=== PATIENT | female | born 1985 | race Caucasian/White ===

== ENCOUNTER 2018-02-10 10:18 | Inpatient (IN) | payer BC, SELFPAY ==
[2018-02-09 17:17] VITALS: BMI 26.9
[2018-02-09 18:20] LABS: Absolute Lymphocyte Count 1.66 X10^3/ul (0.83-4.51); Absolute Neutrophil Count 4.9 X10^3/uL (2.0-7.7); Basophil# 0.02 X10^3/uL; Basophil% 0.3 % (0-1); Eosinophil# 0.04 X10^3/uL; Eosinophils% 0.6 % (0-5); Hematocrit 38.7 % (37-47); Hemoglobin 13.1 g/dl (12.0-15.0); Lymphocyte # 1.66 X10^3/ul (4.0); Lymphocyte % 22.9 % (19-41); Mean Corp Hgb Conc 33.9 g/gl (32-36); Mean Corpuscular Hgb 30.1 pg (27.0-32.0); Mean Platelet Vol. 10.4 fl (6.2-12.0); Monocyte# 0.56 X10^3/uL; Monocyte% 7.7 % (0-10); Neutrophil # 4.94 X10^3/uL (2.7-7.7); Neutrophil % 68.2 % (47-70); Platelet Count 97 K/mm3 (150-450); RBC Distribution Width CV 14.2 % (11.6-14.6); RBC Distribution Width SD 46.1 fl (35.1-43.9); Red Blood Count 4.35 M/mm3 (4.2-5.4); White Blood Count 7.2 K/mm3 (4.4-11.0)
[2018-02-09 18:25] LABS: POSITIVE COUNT NO; POSITIVE DIFFERENTIAL NO; POSITIVE MORPHOLOGY NO
[2018-02-10] VITALS (18 sets, daily range): BP systolic 89–116; BP diastolic 57–88; PULSE 74–92; RESP 16–20; TEMP 35.8–37.2; O2SAT 96–100; BMI 26.9
[2018-02-10] MEDS: Lactated Ringers 1,000 ML 999 ML IV (10:40)
[2018-02-10 11:25] LABS: Hematocrit 35.2 % (37-47); Hemoglobin 12.3 g/dl (12.0-15.0); Mean Corp Hgb Conc 34.9 g/gl (32-36); Mean Corpuscular Hgb 31.3 pg (27.0-32.0); Mean Corpuscular Volume 89.6 fL (81-99); Mean Platelet Vol. 9.9 fl (6.2-12.0); Platelet Count 92 K/mm3 (150-450); RBC Distribution Width CV 14.2 % (11.6-14.6); RBC Distribution Width SD 45.1 fl (35.1-43.9); Red Blood Count 3.93 M/mm3 (4.2-5.4); White Blood Count 6.4 K/mm3 (4.4-11.0)
[2018-02-10 11:27] LABS: Scan Indicated on CBC? Y/N NO
[2018-02-10] MEDS: Sodium Citrate/Citric Acid 30 ML UDC PO (11:56)
[2018-02-10] MEDS: Lactated Ringers 1,000 ML 150 ML IV (11:56)
[2018-02-10] MEDS: Cefazolin 2 GM in 0.9% Normal Saline 100 ML IV (11:56)
[2018-02-10] MEDS: Oxytocin 30 units/NS 500 ml 30 UNITS/500 ML IV.SOLN 167 UNITS IV (12:50)
--- NOTE | 2018-02-10 14:00 | PCM.HP.OB ---
- Problem List (1) Previous delivery affecting , antepartum Status: Acute History Date of Admission: 02/10/18 Final ILIANA: 02/17/18 Final ILIANA Source: LMP Gestational age: 39 Weeks and 0 Days History of this : This is a 32 year-old, G [3], P [2], at 39 weeks gestational age. Here for RLTCS declines tubal ligation, GBS Pos, Gestational thrombocytopenia Medical History: Medical History (Last Updated 02/10/18 @ 14:08 by Deena Griffith DO) Healthy female Previous section complicating O34.219 Allergies No Known Allergies Allergy (Verified 02/09/18 17:18) Home Medications: Home Medications Vits [Prenatabs FA] 1 tablet PO DAILY 02/09/18 Smoking Status: Never smoker Alcohol: None Number of Fetus(es): 1 Heart Tracing: cat 1 History Past Pregnancies: Past Pregnancies Delivery Date Name GA/Weeks Outcome Route Weight Infant Gender Labor Length Anesthesia Delivery Location Provider FO 01/2014 41 C/S 8#4 male epidural [facility] 2015 40 C/S 8#6 female spinal [facility] Labs: Rubella immune, RPR neg, GBS pos, O pos, hep C and Hep B neg Expected Delivery Method: Repeat Section Number of Visits: 11 Review of Systems Constitutional: Denies: Anorexia, Weakness Eyes: Denies: Blurred vision, Double vision, Pain HEENT: Denies: Difficulty Hearing, Head Aches Cardiovascular: Denies: Chest Pain, Palpitations Respiratory: Denies: Cough, Shortness of Breath Gastrointestinal: Denies: Abdominal Pain, Diarrhea, Nausea Genitourinary: Denies: Dysuria, Hematuria Gynecological: Denies: Vaginal discharge Musculoskeletal: Denies: Joint stiffness, Muscle pain Skin: Denies: Jaundice Neurological: Denies: Balance problems Psychiatric: Denies: Depression Hematologic/ Lymphatic: Denies: Adenopathy Physical Exam Vitals: Vital Signs Temp Pulse Resp BP Pulse Ox 96.9 F L 92 16 112/88 H 99 02/10/18 13:45 02/10/18 13:45 02/10/18 13:45 02/10/18 13:45 02/10/18 13:45 General: Alert, Oriented x3 HEENT: Atraumatic, PERRLA Cardiovascular: Regular rate Lungs: Clear to auscultation Abdomen: Bowel Sounds Present, Soft, Non Tender, Gravid Extremities:: No clubbing, No cyanosis, No edema Neurological: Deep Tendon Reflexes 2+/4 and Symmetrical Estimated gestational size: Appropriate for gestational size Presentation: Cephalic Assessment/Plan All Active Problems (Last Updated 02/10/18 @ 14:08 by Deena Griffith DO) Previous delivery affecting , antepartum (Acute) This is a 32 year-old, G [], P [], at 39 weeks gestational age. consented for Repeat section Ancef for preop and GBS
--- NOTE | 2018-02-10 14:23 | SUR.OPER ---
Pre OP- Previous section Post op- Same Procedure: Repeat Low Transverse section Surgeon: Nacho Assist: Fish Fryer Anesthesia: Spinal EBL: 800 Fluids: 1000LR UOP: 400 clear at end of procedure special meds: Ancef, toradol and Agustín Findings: Male 8#13 11/08 Indications: 32 yo for repeat Low transverse section. Scheduled delivery. R/b/a reviewed patient was agreeable and consented appropriately. Procedure: Patient was taken to the operating room where she was prepped and draped in the normal sterile fashion. Adequate anesthesia was obtained, Chau to straight drain and SCD's in place and functioning. A pfannenstiel skin incision was made with the scalpel through the previous scar and carried down through the underlying layers of tissue to the fascia. Fascia was nicked in the midline and stephen scissors used to dissect out laterally. The superior portion of the fascia was tented up with Johnny clamps and the rectus muscles were dissected off with sharp dissection. The inferior portion of the fascia was tented up with Johnny clamps and the rectus muscles dissected off with sharp dissection. The rectus muscle were in the midline with sharp dissection the peritoneum entered sharply after tenting up with Kavita clamps. The peritoneal incision was extended superior and inferiorly with good visualization of the bladder. The bladder blade was inserted and the lower uterine incision was incised with the scalpel. The placenta was encounterd and the head grasp throught the placenta dissengaged the head from the pelvis easily. The Head and body were delivered with the assistance of fundal pressure. Baby was vigorous upon delivery and delayed cord clamping performed on the field with baby blanket for warmth. The cord was clamped and cut and 3 vessel cord confirmed. The cord was wrapped around the body and there was a true knot. The Baby Boy was handed off to the baby nurse. The placenta delivered spontaneously and the uterus cleared of all clot and debris. The uterine incision was closed with an 0 vicryl suture running lock obtaining hemostasis. A second suture was used to imbricate the incision and confirm hemostasis. The uterus was firm and returned to the abdomen. Abdomen was irrigated cleared of all clot and debris. The peritoneum was identified and closed with an 2-0 monocryl in a running fashion. The muscles reapproximated with an 0 vicryl u stitch. The fascia was closed with an 0 vicryl. The subcutaneous tissue reapproximated with a 3-0 vicryl and the skin closed with 4-0 monocryl dressed with Dermabond. Patient tolerated the procedure well. Sponge, Lap and needle count was correct x 2. Patient and infant taken to the recovery room and were stable at the time of dictation. Deena Griffith DO FACOG 02/10/2018
--- NOTE | 2018-02-10 14:41 | PCM.OB.CSR ---
- Problem List (1) Previous delivery affecting , antepartum Status: Acute Delivery Final ILIANA: 02/17/18 Gestational age: 39 Weeks and 0 Days Indications for : Repeat Elective Amniotic Membrane Rupture Type: Artificial Amniotic Fluid Description: Clear Placenta Disposition: [facility] Drain: Chau to straight drain Cord Entanglement: Around neck x 1, loose, True Knot(s) Cord Vessel Description: 3 Vessels Esitmated Blood Loss (ml): 800 Infant Gender: Male (1 minute): 9 (5 minute): 9 Delayed cord clamping: Yes Pre-op Antibiotic Given: Ancef 2 grams IV x1 Pt instructed on risks of surgery: Bleeding, Anesthesia Risks, Infection, Injury to surrounding structure(s) including bowel and bladder Complications: None - Admit VTE Documentation VTE Present on Admission: No VTE Mechan Device Prophylaxis: SCD's VTE Pharm Prophylaxis ordered?: No
[2018-02-10] MEDS: Lactated Ringers 1,000 ML 100 ML IV ×2 (18:05→23:43)
[2018-02-10] MEDS: Ketorolac 30 MG/ML Syringe IV ×2 (18:36→23:42)
[2018-02-11] VITALS (9 sets, daily range): BP systolic 110–125; BP diastolic 64–75; PULSE 70–92; RESP 16–18; TEMP 36.4–37.1; O2SAT 98–99
[2018-02-11] MEDS: Ketorolac 30 MG/ML Syringe IV ×3 (06:01→18:30)
[2018-02-11 06:26] LABS: Hematocrit 29.7 % (37-47); Mean Corp Hgb Conc 33.7 g/gl (32-36); Mean Corpuscular Hgb 30.6 pg (27.0-32.0); Mean Corpuscular Volume 90.8 fL (81-99); Mean Platelet Vol. 10.5 fl (6.2-12.0); Platelet Count 92 K/mm3 (150-450); RBC Distribution Width CV 14.4 % (11.6-14.6); RBC Distribution Width SD 45.9 fl (35.1-43.9); Red Blood Count 3.27 M/mm3 (4.2-5.4); White Blood Count 8.3 K/mm3 (4.4-11.0)
[2018-02-11 06:29] LABS: Scan Indicated on CBC? Y/N NO
--- NOTE | 2018-02-11 08:55 | PCM.PN.OB ---
Patient Problems: Active and Suspected Problems (Last Updated 02/10/18 @ 14:08 by Deena Griffith DO) Previous delivery affecting , antepartum (Acute) Subjective: Doing well. She was up to the chair last night. Bleeding is decreasing. Baby is feeding well. Pain is under good control. - Physical Exam General: Alert, Oriented x3, Cooperative HEENT: Atraumatic Neck: Supple Lungs: Normal air movement Abdomen: Soft, Non-Distended - incision healing well. No erythema, slight ecchymosis Extremities: Edema Skin: No rashes Psych/Mental Status: Normal Affect, Appropriate Vital Signs Temp Pulse Resp BP Pulse Ox 98.7 F 70 18 125/64 H 98 02/11/18 06:00 02/11/18 06:00 02/11/18 06:00 02/11/18 06:00 02/11/18 06:00 Oxygen Delivery Method Room Air Weight: 182 lb 9.6 oz Body Mass Index (BMI) 26.9 Intake and Output for Last 24 Hours 02/09/18 02/10/18 02/11/18 23:59 23:59 23:59 Intake Total 4825 / 4825 1000 / 1000 Output Total 1425 / 1425 1800 / 1800 Balance 3400 / 3400 -800 / -800 Laboratory Tests Past 24 Hrs 02/10/18 02/11/18 11:18 06:00 WBC 6.4 8.3 RBC 3.93 L 3.27 L Hgb 12.3 10.0 L Hct 35.2 L 29.7 L MCV 89.6 90.8 MCH 31.3 30.6 MCHC 34.9 33.7 RDW 14.2 14.4 RDW Differential 45.1 H 45.9 H Plt Count 92 L 92 L MPV 9.9 10.5 Medical Necessity - Tobacco Use Smoking Status: Never smoker Assessment/Plan All Active Problems (Last Updated 02/10/18 @ 14:08 by Deena Griffith DO) Previous delivery affecting , antepartum (Acute) Discharge home tomorrow.
--- NOTE | 2018-02-11 08:58 | PCM.DCCSEC ---
Discharge Diet: No Restrictions Discharge Activity: May not drive while taking narcotic pain medications. May resume sexual activity in: 2 weeks Weight Bearing Status: Weight bearing as tolerated Call your doctor if your incision/area has: Continuous Slow Oozing, Sudden Increased Bleeding, Increased Pain/ Swelling, Increased Redness, Foul Smelling Discharge, Swelling at the incision site Call your doctor if you observe: Fever of 101 or Higher, Coldness, Increased Pain, Numbness or Tingling, Uncontrolled pain Suture Line Care: Avoid Pulling/Pushing Cleanse incision/area with: Soap & Water, Keep Dressing Clean & Dry Additional Instructions: If you experience any of the following, contact your healthcare provider. Bleeding that soaks a pad every hour for 2 hours Fever 100.4 or higher Unrelieved incision or abdominal pain Swelling, redness, discharge or bleeding from your incision or episiotomy site Your incision begins to separate Problems urinating (including inability to urinate or burning while urinating). Visual changes Severe headache Flu-like symptoms Pain or redness in one of both of your breasts Pain, warmth, tenderness or swelling in your legs, especially the calf area Frequent nausea and vomiting Symptoms of depression or anxiety If you experience any of the following, call 911 or go to the nearest Emergency Room. Chest pain Problems breathing Seizure activity Partial or complete paralysis of a body part, slurred speech, weakness or drooping of the face, or a sudden inability to walk or hold your balance Allergies/Adverse Reactions: Allergies No Known Allergies Allergy (Verified 02/09/18 17:18) Medications to take at Discharge Vits [Prenatabs FA] 1 tablet PO DAILY 02/09/18 Follow-Up: Call to make an appointment with your doctor for an incision check in 1-2 weeks. You will also need a 6 week post- follow up appointment. Test results from this visit will be discussed in further detail at your follow-up appointment, if applicable. Primary Care Physician: Francis Campbell MD [Primary Care Provider] -
--- NOTE | 2018-02-11 09:03 | DCINST_ITS ---
Discharge Diet: No Restrictions Discharge Activity: May not drive while taking narcotic pain medications. May resume sexual activity in: 2 weeks Weight Bearing Status: Weight bearing as tolerated Call your doctor if your incision/area has: Continuous Slow Oozing, Sudden Increased Bleeding, Increased Pain/ Swelling, Increased Redness, Foul Smelling Discharge, Swelling at the incision site Call your doctor if you observe: Fever of 101 or Higher, Coldness, Increased Pain, Numbness or Tingling, Uncontrolled pain Suture Line Care: Avoid Pulling/Pushing Cleanse incision/area with: Soap & Water, Keep Dressing Clean & Dry Additional Instructions: If you experience any of the following, contact your healthcare provider. * Bleeding that soaks a pad every hour for 2 hours * Fever 100.4 or higher * Unrelieved incision or abdominal pain * Swelling, redness, discharge or bleeding from your incision or episiotomy site * Your incision begins to separate * Problems urinating (including inability to urinate or burning while urinating). * Visual changes * Severe headache * Flu-like symptoms * Pain or redness in one of both of your breasts * Pain, warmth, tenderness or swelling in your legs, especially the calf area * Frequent nausea and vomiting * Symptoms of depression or anxiety If you experience any of the following, call 911 or go to the nearest Emergency Room. * Chest pain * Problems breathing * Seizure activity * Partial or complete paralysis of a body part, slurred speech, weakness or drooping of the face, or a sudden inability to walk or hold your balance Allergies/Adverse Reactions: Allergies No Known Allergies Allergy (Verified 02/09/18 17:18) Medications to take at Discharge Vits [Prenatabs FA] 1 tablet PO DAILY 02/09/18 Follow-Up: Call to make an appointment with your doctor for an incision check in 1-2 weeks. You will also need a 6 week post- follow up appointment. Test results from this visit will be discussed in further detail at your follow- up appointment, if applicable. Primary Care Physician: Francis Campbell MD [Primary Care Provider] -
--- NOTE | 2018-02-11 09:04 | PCM.DC.SUM ---
Discharge Date and Diagnosis - Problem List Patient Problems: Active and Suspected Problems (Last Updated 02/10/18 @ 14:08 by Deena Griffith DO) Previous delivery affecting , antepartum (Acute) Date of Admission: 02/10/18 Date of Discharge: 02/12/18 - Primary Discharge Diagnosis Active and Suspected Problems (Last Updated 02/10/18 @ 14:08 by Deena Griffith DO) Previous delivery affecting , antepartum (Acute) Hospital Course and Treatment Operations: - - Repeat section Summary of Care Provided: The patient is a 32 year old F who presented for a repeat section. Her delivery went well. Her course was unremarkable and she was discharged in stable and satisfactory condition on postoperative day 2. Patient Problems: Active and Suspected Problems (Last Updated 02/10/18 @ 14:08 by Deena Griffith DO) Previous delivery affecting , antepartum (Acute) - Physical Exam General: Alert, Oriented x3 HEENT: Atraumatic Oral: Moist Mucosa Neck: Supple Lungs: Normal air movement Cardiovascular: Regular rate Abdomen: Bowel Sounds Present Skin: Incision - healing well Psych/Mental Status: Normal Affect, Appropriate Vital Signs Temp Pulse Resp BP Pulse Ox 98.7 F 70 18 125/64 H 98 02/11/18 06:00 02/11/18 06:00 02/11/18 06:00 02/11/18 06:00 02/11/18 06:00 Oxygen Delivery Method Room Air Weight: 182 lb 9.6 oz Body Mass Index (BMI) 26.9 Intake and Output for Last 24 Hours 02/09/18 02/10/18 02/11/18 23:59 23:59 23:59 Intake Total 4825 / 4825 1000 / 1000 Output Total 1425 / 1425 1800 / 1800 Balance 3400 / 3400 -800 / -800 Laboratory Tests Past 24 Hrs 02/10/18 02/11/18 11:18 06:00 WBC 6.4 8.3 RBC 3.93 L 3.27 L Hgb 12.3 10.0 L Hct 35.2 L 29.7 L MCV 89.6 90.8 MCH 31.3 30.6 MCHC 34.9 33.7 RDW 14.2 14.4 RDW Differential 45.1 H 45.9 H Plt Count 92 L 92 L MPV 9.9 10.5 Discharge Diet: No Restrictions Discharge Activity: May not drive while taking narcotic pain medications. May resume sexual activity in: 6-8 weeks, 2 weeks Weight Bearing Status: Weight bearing as tolerated Call your doctor if your incision/area has: Continuous Slow Oozing, Sudden Increased Bleeding, Increased Pain/ Swelling, Increased Redness, Foul Smelling Discharge, Swelling at the incision site Call your doctor if you observe: Fever of 101 or Higher, Coldness, Increased Pain, Numbness or Tingling, Uncontrolled pain Suture Line Care: Avoid Pulling/Pushing Cleanse incision/area with: Soap & Water, Keep Dressing Clean & Dry Home Medications: Medications to take at Discharge Vits [Prenatabs FA] 1 tablet PO DAILY 02/09/18 Primary Care Physician: Francis Campbell MD [Primary Care Provider] - Medical Necessity - Tobacco Use Smoking Status: Never smoker Meaningful Use Info Meaningful Use Diagnoses (Choose all that apply): None applicable
[2018-02-11] MEDS: 0.9% Saline Lock 10 ML Syringe IV (11:59)
[2018-02-11] MEDS: Senna/Docusate Sodium 1 Tablet PO (11:59)
[2018-02-11] MEDS: oxyCODONE 5 MG Tablet PO (13:26)
[2018-02-12] MEDS: Ketorolac 30 MG/ML Syringe IV ×2 (00:12→06:33)
[2018-02-12 02:00] VITALS: BP 111/69; PULSE 75; RESP 14; TEMP 36.3; O2SAT 99
--- NOTE | 2018-02-12 08:39 | PCM.PN.OB ---
Patient Problems: Active and Suspected Problems (Last Updated 02/10/18 @ 14:08 by Deena Griffith DO) Previous delivery affecting , antepartum (Acute) Subjective: Doing well. No SOB, CP. Pain controlled Plans home today - Physical Exam General: Alert, Oriented x3 Abdomen: Soft, Non-Distended, - - Incision with op site, intact. No drainage. FF below U Vital Signs Temp Pulse Resp BP Pulse Ox 97.3 F L 75 14 111/69 99 02/12/18 02:00 02/12/18 02:00 02/12/18 02:00 02/12/18 02:00 02/12/18 02:00 Oxygen Delivery Method Room Air Weight: 182 lb 9.6 oz Body Mass Index (BMI) 26.9 Intake and Output for Last 24 Hours 02/10/18 02/11/18 02/12/18 23:59 23:59 23:59 Intake Total 4825 / 4825 1800 / 1800 Output Total 1425 / 1425 3200 / 3200 Balance 3400 / 3400 -1400 / -1400 Medical Necessity - Tobacco Use Smoking Status: Never smoker Assessment/Plan All Active Problems (Last Updated 02/10/18 @ 14:08 by Deena Griffith DO) Previous delivery affecting , antepartum (Acute) LTRCS POD#2: Routine care. . [place] home. Seen for Dr. Griffith.
[2018-02-12 10:00] VITALS: BP 105/48; PULSE 64; RESP 16; TEMP 36.8
[2018-02-12] MEDS: Senna/Docusate Sodium 1 Tablet PO (11:50)
[2018-02-12] MEDS: Ibuprofen 600 MG Tablet PO (11:50)
--- NOTE | 2018-02-17 14:41 | NURSING ---
02-17-18 Follow up phone made and no answer. Voicemail left. RYlamr RN IBCLC
--- OUTSIDE RECORDS SUMMARY | 2018-03-29 12:00 | XMS RPT_ITS ---
:1985 Author Organization OHIP Care Team Providers Name Role Phone KIAN PHELAN Attending Unavailable ANDREWS OLMEDO Referring Unavailable NO PRIMARY CAREMD Primary Care Unavailable KIAN PHELAN Attending Unavailable BRADEN, DEENA Referring Unavailable NO PRIMARY CAREMD Primary Care Unavailable Braden, Deena Admitting Unavailable Caryn Persaud Attending Unavailable Braden, Deena Referring Unavailable Campbell, Francis Primary Care Unavailable Braden, Deena Consulting Unavailable Braden, Deena Admitting Unavailable Braden, Deena Attending Unavailable Braden, Deena Referring Unavailable Campbell, Francis Primary Care Unavailable PROBLEMS PROBLEMS DATE TYPE CONDITION / CODE ATTENDING STATUS SOURCE 02/15/2018 Unknown O34.219 - Maternal Braden, Deena Active [facility] care for unspecified Community type scar from Hospital previous Repository delivery / O34.219(ICD-10) 02/15/2018 Unknown G89.18 - Other acute Deena Griffith Active [place] postprocedural pain [facility] / G89.18(ICD-10) Hospital Repository PROCEDURES PROCEDURES No Procedure Records FoundRESULTS RESULTS DISCHARGE SUMMARY Observed: 02/11/2018 Status: F Source: [place] 9:16 AM [facility] REPOSITORY [facility] Medical Records Department [address] [place] [address] Discharge Summary 02/11/18 0904 MR#: [id number] Acct: [id number] Name: MOLLY SCHOFIELD Rep #: [id number] : 1985 32 From: Kianna Chun MD PCP: Francis Campbell MD Status: ADM IN Y [id number] Date and Diagnosis - Problem List Patient Problems: Active and Suspected Problems (Last Updated 02/10/18 @ 14:08 by Deena Griffith DO) Previous delivery affecting , antepartum (Acute) Date of Admission: 02/10/18 Date of Discharge: 02/12/18 - Primary Discharge Diagnosis Active and Suspected Problems (Last Updated 02/10/18 @ 14:08 by Deena Griffith DO) Previous delivery affecting , antepartum (Acute) Hospital Course and Treatment Operations: - - Repeat section Summary of Care Provided: The patient is a 32 year old F who presented for a repeat section. Her delivery went well. Her course was unremarkable and she was discharged in stable and satisfactory condition on postoperative day 2. Patient Problems: Active and Suspected Problems (Last Updated 02/10/18 @ 14:08 by Deena Griffith DO) Previous delivery affecting , antepartum (Acute) - Physical Exam General: Alert, Oriented x3 HEENT: Atraumatic Oral: Moist Mucosa Neck: Supple Lungs: Normal air movement Cardiovascular: Regular rate Abdomen: Bowel Sounds Present Skin: Incision - healing well Psych/Mental Status: Normal Affect, Appropriate Vital Signs Temp Pulse Resp BP Pulse Ox 98.7 F 70 18 125/64 H 98 02/11/18 06:00 02/11/18 06:00 02/11/18 06:00 02/11/18 06:00 02/11/18 06:00 Oxygen Delivery Method Room Air Weight: 182 lb 9.6 oz Body Mass Index (BMI) 26.9 Intake and Output for Last 24 Hours Intake Total 4825 / 4825 1000 / 1000 Output Total 1425 / 1425 1800 / 1800 Balance 3400 / 3400 -800 / -800 Laboratory Tests Past 24 Hrs WBC 6.4 8.3 RBC 3.93 L 3.27 L Discharge Diet: No Restrictions Discharge Activity: May not drive while taking narcotic pain medications. May resume sexual activity in: 6-8 weeks, 2 weeks Weight Bearing Status: Weight bearing as tolerated Call your doctor if your incision/area has: Continuous Slow Oozing, Sudden Increased Bleeding, Increased Pain/ Swelling, Increased Redness, Foul Smelling Discharge, Swelling at the incision site Call your doctor if you observe: Fever of 101 or Higher, Coldness, Increased Pain, Numbness or Tingling, Uncontrolled pain Suture Line Care: Avoid Pulling/Pushing Cleanse incision/area with: Soap AND Water, Keep Dressing Clean AND Dry Home Medications: Medications to take at Discharge Vits [Prenatabs FA] 1 tablet PO DAILY 02/09/18 Primary Care Physician: Francis Campbell MD [Primary Care Provider] - Medical Necessity - Tobacco Use Smoking Status: Never smoker Meaningful Use Info Meaningful Use Diagnoses (Choose all that apply): None applicable 02/11/18 0916 <Electronically signed by Kianna Chun MD> Date Kianna Chun MD Cosigner Signature (if applicable): Date CC: Kianna Chun MD; Francis Campbell MD Signed DISCHARGE INSTRUCTION Observed: 02/11/2018 Status: F Source: [place] 9:03 AM [facility] REPOSITORY [facility] Medical Records Department [address] [place] [address] Instructions for Home/Discharge Instructions 02/11/18 0858 MR#: [id number] Acct: [id number] Name: MOLLY SCHOFIELD Rep #: [id number] : 1985 32 From: Kianna Chun MD PCP: Francis Campbell MD Status: ADM IN Discharge Diet: No Restrictions Discharge Activity: May not drive while taking narcotic pain medications. May resume sexual activity in: 2 weeks Weight Bearing Status: Weight bearing as tolerated Call your doctor if your incision/area has: Continuous Slow Oozing, Sudden Increased Bleeding, Increased Pain/ Swelling, Increased Redness, Foul Smelling Discharge, Swelling at the incision site Call your doctor if you observe: Fever of 101 or Higher, Coldness, Increased Pain, Numbness or Tingling, Uncontrolled pain Suture Line Care: Avoid Pulling/Pushing Cleanse incision/area with: Soap AND Water, Keep Dressing Clean AND Dry Additional Instructions: If you experience any of the following, contact your healthcare provider. * Bleeding that soaks a pad every hour for 2 hours * Fever 100.4 or higher * Unrelieved incision or abdominal pain * Swelling, redness, discharge or bleeding from your incision or episiotomy site * Your incision begins to separate * Problems urinating (including inability to urinate or burning while urinating). * Visual changes * Severe headache * Flu-like symptoms * Pain or redness in one of both of your breasts * Pain, warmth, tenderness or swelling in your legs, especially the calf area * Frequent nausea and vomiting * Symptoms of depression or anxiety If you experience any of the following, call 911 or go to the nearest Emergency Room. * Chest pain * Problems breathing * Seizure activity * Partial or complete paralysis of a body part, slurred speech, weakness or drooping of the face, or a sudden inability to walk or hold your balance Allergies/Adverse Reactions: Allergies No Known Allergies Allergy (Verified 02/09/18 17:18) Medications to take at Discharge Vits [Prenatabs FA] 1 tablet PO DAILY 02/09/18 Follow-Up: Call to make an appointment with your doctor for an incision check in 1-2 weeks. You will also need a 6 week post- follow up appointment. Test results from this visit will be discussed in further detail at your follow-up appointment, if applicable. Primary Care Physician: Francis Campbell MD [Primary Care Provider] - 02/11/18 0903 <Electronically signed by Kianna Chun MD> Date Kianna Chun MD CC: Francis Campbell MD CBC-COMPLETE BLOOD CNT Collected: 02/11/2018 Status: F Source: [place] NO DIFF 6:00 AM [facility] REPOSITORY Order Comment: Comments: Day #1 Reason for Laboratory Test TYPE CODE TESTS RESULT OUT OF RANGE REFERENCE UNITS LAB L100.1000 4.4-11.0 K/mm3 Normal WBC 8.3 LAB L100.1200 4.2-5.4 M/mm3 Low RBC 3.27 LAB L100.1300 12.0-15.0 g/dl Low HGB 10.0 LAB L100.1400 37-47 % Low HCT 29.7 LAB L100.1500 81-99 fL Normal MCV 90.8 LAB L100.1600 27.0-32.0 pg Normal MCH 30.6 LAB L100.1700 32-36 g/gl Normal MCHC 33.7 LAB L100.1810 11.6-14.6 % Normal RDW CV 14.4 LAB L100.1820 35.1-43.9 fl High RDW SD 45.9 LAB L100.1900 150-450 K/mm3 Low PLT 92 LAB L100.2000 6.2-12.0 fl Normal MPV 10.5 Performed By: #### L100.0500 #### [facility] [address] [place], [address] OPERATIVE REPORT Observed: 02/10/2018 Status: F Source: [place] 2:44 PM [facility] REPOSITORY [facility] Medical Records Department [address] [place] [address] Operative Report 02/10/18 1441 MR#: [id number] Acct: [id number] Name: MOLLY SCHOFIELD Rep #: [id number] : 1985 32 From: Deena Griffith DO PCP: Francis Campbell MD Status: ADM IN Y Location: [id number] - Problem List (1) Previous delivery affecting , antepartum Status: Acute Delivery Final ILIANA: 02/17/18 Gestational age: 39 Weeks and 0 Days Indications for : Repeat Elective Amniotic Membrane Rupture Type: Artificial Amniotic Fluid Description: Clear Placenta Disposition: [facility] Drain: Chau to straight drain Cord Entanglement: Around neck x 1, loose, True Knot(s) Cord Vessel Description: 3 Vessels Esitmated Blood Loss (ml): 800 Infant Gender: Male (1 minute): 9 (5 minute): 9 Delayed cord clamping: Yes Pre-op Antibiotic Given: Ancef 2 grams IV x1 Pt instructed on risks of surgery: Bleeding, Anesthesia Risks, Infection, Injury to surrounding structure(s) including bowel and bladder Complications: None - Admit VTE Documentation VTE Present on Admission: No VTE Mechan Device Prophylaxis: SCD's VTE Pharm Prophylaxis ordered?: No 02/10/18 1444 <Electronically signed by Deena Griffith DO> Date Deena Griffith DO CC: Deena Griffith DO; Francis Campbell MD Signed HISTORY AND PHYSICAL Observed: 02/10/2018 Status: F Source: [place] EXAM 2:21 PM [facility] REPOSITORY [facility] Medical Records Department [address] [place] [address] History and Physical 02/10/18 1400 MR#: [id number] Acct: [id number] Name: MOLLY SCHOFIELD Rep #: [id number] : 1985 32 From: Deena Griffith DO PCP: Francis Campbell MD Status: ADM IN Location: GX991-5 - Problem List (1) Previous delivery affecting , antepartum Status: Acute History Date of Admission: 02/10/18 Final ILIANA: 02/17/18 Final ILIANA Source: LMP Gestational age: 39 Weeks and 0 Days History of this : This is a 32 year-old, G [3], P [2], at 39 weeks gestational age. Here for RLTCS declines tubal ligation, GBS Pos, Gestational thrombocytopenia Medical History: Medical History (Last Updated 02/10/18 @ 14:08 by Deena Griffith DO) Healthy female Previous section complicating O34.219 Allergies No Known Allergies Allergy (Verified 02/09/18 17:18) Home Medications: Home Medications Vits [Prenatabs FA] 1 tablet PO DAILY 02/09/18 Smoking Status: Never smoker Alcohol: None Number of Fetus(es): 1 Heart Tracing: cat 1 History Past Pregnancies: Past Pregnancies Delivery Name GA/Weeks Outcome Route WeiInfant GeLabor LenAnesthesiDelivery Provider FOB Date ght nder [facility] a Location 01/2014 41 C/S 8#4 male epidural [facility] Braden Labs: Rubella immune, RPR neg, GBS pos, O pos, hep C and Hep B neg Expected Delivery Method: Repeat Section Number of Visits: 11 Review of Systems Constitutional: Denies: Anorexia, Weakness Eyes: Denies: Blurred vision, Double vision, Pain HEENT: Denies: Difficulty Hearing, Head Aches Cardiovascular: Denies: Chest Pain, Palpitations Respiratory: Denies: Cough, Shortness of Breath Gastrointestinal: Denies: Abdominal Pain, Diarrhea, Nausea Genitourinary: Denies: Dysuria, Hematuria Gynecological: Denies: Vaginal discharge Musculoskeletal: Denies: Joint stiffness, Muscle pain Skin: Denies: Jaundice Neurological: Denies: Balance problems Psychiatric: Denies: Depression Hematologic/ Lymphatic: Denies: Adenopathy Physical Exam Vitals: Vital Signs Temp Pulse Resp BP Pulse Ox 96.9 F L 92 16 112/88 H 99 02/10/18 13:45 02/10/18 13:45 02/10/18 13:45 02/10/18 13:45 02/10/18 13:45 General: Alert, Oriented x3 HEENT: Atraumatic, PERRLA Cardiovascular: Regular rate Lungs: Clear to auscultation Abdomen: Bowel Sounds Present, Soft, Non Tender, Gravid Extremities:: No clubbing, No cyanosis, No edema Neurological: Deep Tendon Reflexes 2+/4 and Symmetrical Estimated gestational size: Appropriate for gestational size Presentation: Cephalic Assessment/Plan All Active Problems (Last Updated 02/10/18 @ 14:08 by Deena Griffith DO) Previous delivery affecting , antepartum (Acute) This is a 32 year-old, G [], P [], at 39 weeks gestational age. consented for Repeat section Ancef for preop and GBS 02/10/18 1421 <Electronically signed by Deena Griffith DO> Date Deena Griffith DO Cosigner Signature: Date (if applicable) CC: Deena Griffith DO; Francis Campbell MD Signed CBC-COMPLETE BLOOD CNT Collected: 02/10/2018 Status: F Source: [place] NO DIFF 11:18 AM [facility] REPOSITORY TYPE CODE TESTS RESULT OUT OF RANGE REFERENCE UNITS LAB L100.1000 4.4-11.0 K/mm3 Normal WBC 6.4 LAB L100.1200 4.2-5.4 M/mm3 Low RBC 3.93 LAB L100.1300 12.0-15.0 g/dl Normal HGB 12.3 LAB L100.1400 37-47 % Low HCT 35.2 LAB L100.1500 81-99 fL Normal MCV 89.6 LAB L100.1600 27.0-32.0 pg Normal MCH 31.3 LAB L100.1700 32-36 g/gl Normal MCHC 34.9 LAB L100.1810 11.6-14.6 % Normal RDW CV 14.2 LAB L100.1820 35.1-43.9 fl High RDW SD 45.1 LAB L100.1900 150-450 K/mm3 Low PLT 92 LAB L100.2000 6.2-12.0 fl Normal MPV 9.9 Performed By: #### L100.0500 #### [facility] [address] [place], [address] CBC W/DIFF, AUTOMATED Collected: 02/09/2018 Status: F Source: [place] 6:05 PM [facility] REPOSITORY TYPE CODE TESTS RESULT OUT OF RANGE REFERENCE UNITS LAB L100.1000 4.4-11.0 K/mm3 Normal WBC 7.2 LAB L100.1200 4.2-5.4 M/mm3 Normal RBC 4.35 LAB L100.1300 12.0-15.0 g/dl Normal HGB 13.1 LAB L100.1400 37-47 % Normal HCT 38.7 LAB L100.1500 81-99 fL Normal MCV 89.0 LAB L100.1600 27.0-32.0 pg Normal MCH 30.1 LAB L100.1700 32-36 g/gl Normal MCHC 33.9 LAB L100.1810 11.6-14.6 % Normal RDW CV 14.2 LAB L100.1820 35.1-43.9 fl High RDW SD 46.1 LAB L100.1900 150-450 K/mm3 Low PLT 97 LAB L100.2000 6.2-12.0 fl Normal MPV 10.4 LAB L100.2100 47-70 % Normal NEUT% 68.2 LAB L100.2200 19-41 % Normal LY% 22.9 LAB L100.2300 0-10 % Normal MONO% 7.7 LAB L100.2400 0-5 % Normal EO% 0.6 LAB L100.2500 0-1 % Normal BASO% 0.3 LAB L100.2550 0.0-0.9 % Normal IM GRAN % 0.300 Result Comment: IG% - Immature Granulocytes (promyelocytes, myelocytes and metamyelocytes) > 1% indicates that a LEFT SHIFT is Present. LAB L100.2620 2.0-7.7 X10 3/uL Normal Absolute Neut 4.9 LAB L100.2720 0.83-4.51 X10 3/ul Normal Absolute Lymph 1.66 Performed By: #### L100.0100 #### [facility] [address] [place], [place], [id number] TYPE AND SCREEN Collected: 02/09/2018 Status: F Source: [place] 6:05 PM [facility] REPOSITORY Order Comment: Reason for Type AND Screen/Red Cells: SURGERY Surgery Date: 02/10/18 Time: 1200 Type of Surgery: TYPE CODE TESTS RESULT OUT OF RANGE REFERENCE UNITS LAB B10.0800 O Normal BLOOD TYPE GEL POSITIVE LAB B100.4000 Normal Antibody NEGATIVE Screen Performed By: #### B101.7450 #### [facility] [address] [place], [place], [id number] ALLERGIES ALLERGIES DATE TYPE / CODE NAME / CODE REACTION SEVERITY SOURCE 02/09/2018 Drug No Known Unknown [place] [facility] Allergy/4160 Allergies/F00 Hospital 28576(SNOMED [id number](RXNOR Repository CT) M) ENCOUNTERS ENCOUNTERS ADMIT/DISCHARGE ACCOUNT ADMITTING ENCOUNTER LOCATION SOURCE NUMBER CLASS 02/10/2018 [id number] Deena Griffith Ambulatory BMSBuilding:B [place].CF.[facility] Repository 02/10/2018/02/13/20 [id number] Deena Griffith Inpatient [place] 18 Encounter [facility] ing:WPRoom: Repository [id number]: 1 09/29/2017 [id number] Ambulatory Building:[facility] Repository 07/15/2017/07/16/19 [id number] Ambulatory Building:[address] Repository PAYERS PAYERS ENCOUNTER GUARANTOR PAYER SUBSCRIBER SOURCE 02/10/2018 MOLLY Sesay Primary MOLLY M [facility] [id number] RED Insurance:ANTHEMPolic BUSSONDOB: [facility] y [place]: [id number] [id number] Repository 137[address]Lxf: [phone]) Date:7094-10-86VL [phone] () [address] [place] [address]HV: 02/10/2018 Secondary NOT GIVENUNK [place] Insurance:SELF PAY [facility] Number: Effective Repository Date:2018-02-10 02/10/2018 MOLLY M Primary MOLLY M Liliam [id number] RED Insurance:ANTHEMPolic BUSSONDOB: [facility] y Number: [id number] [id number] Repository 65081Qkq: [phone]) Date:4119-05-86CX [phone] () [id number] [place] [address]TI: 02/10/2018 Secondary NOT GIVENUNK [place] Insurance:SELF PAY [facility] Number: Effective Repository Date:2017-12-08 09/29/2017 MOLLYHERMES GARBER Primary MOLLYHERMES STOCK[employer] [facility] BUSSONDOB: [facility]DOB[facility] Hospital y Number: [id number] Repository RED [id number] RED [facility], Date: [place], [place] [address]: [place] [phone] () 07/15/2017 MOLLY GARBER [facility] MOLLY GARBER [facility] BUSSONDOB: Insurance[facility] BUSSONDOB: Hospital y Number: [id number] Repository RED [id number] RED [facility], Date: [place], [place] [address]: [place] [phone] ()
== END 2018-02-12 12:50 | disposition home or self-care (01) | DRG 787 ==
PROVIDERS: Anesthesiology; Admitting Provider Obstetrics & Gynecology; Family Provider Family Medicine; PCP Family Medicine; Referring Provider Obstetrics & Gynecology; Visit Provider Obstetrics & Gynecology
PROC: 10D00Z1 Extraction of Products of Conception, Low, Open Approach (ICD-10-PCS; CPT 59514; principal; 2018-02-10 11:45)
DX: O34.211 Maternal care for low transverse scar from previous cesarean delivery (principal); O99.12 Other diseases of the blood and blood-forming organs and certain disorders involving the immune mechanism complicating childbirth; O98.82 Other maternal infectious and parasitic diseases complicating childbirth; N85.8 Other specified noninflammatory disorders of uterus; D69.59 Other secondary thrombocytopenia; B95.1 Streptococcus, group B, as the cause of diseases classified elsewhere; O69.81X0 Labor and delivery complicated by cord around neck, without compression, not applicable or unspecified; O69.2XX0 Labor and delivery complicated by other cord entanglement, with compression, not applicable or unspecified; Z37.0 Single live birth; Z3A.39 39 weeks gestation of pregnancy
CPT/HCPCS: 85025; 85027; 86850; 86900; 99218; J7120; A4216; G0378